=== PATIENT | female | born 1955 | race Caucasian/White ===

== ENCOUNTER 2020-12-09 11:39 | Day surgery (SDCO) | payer OTHER ==
[~2020-12-09 11:39] MED LIST: AMARYL4 MG PO; CERTAGEN1 EACH PO; COMPLETE OMEGA1 EACH PO; EFFEXOR XR37.5 MG PO; JANUVIA100 MG PO; LASIX40 MG PO; LO-DOSE ASPIRIN81 MG PO; METFORMIN HCL500 MG PO; MICRO-K10 MEQ PO; PRAVASTATIN SOD10 MG PO; SINEQUAN10 MG PO; VITAMIN D31000 UNIT PO; VITAMIN E400 UNI1 PO; ZESTRIL5 MG PO
[2020-12-09 12:50] LABS: BASOPHIL 0.4 % (0-2); EOSINOPHIL 0.2 % (0-7); HCT 33.5 % (37.0-47.0); HGB 11.8 g/dl (12.5-16.0); LYMPHOCYTE 10.7 % (15-48); MCH 31.2 pg (25.0-31.0); MCHC 35.2 g/dL (32.0-36.0); MCV 88.6 fL (78.0-100.0); MONOCYTE 3.8 % (0-12); MPV 9.7 fL (6.0-9.5); NEUTROPHIL 84.3 % (41-80); NRBC 0; PLT 323 K/uL (150-400); RBC 3.78 M/uL (4.20-5.40); RDW 14.6 % (11.5-14.0); RETICULOCYTE COUNT 1.9 % (1.0-2.0); WBC 15.9 K/uL (4.0-10.5)
[2020-12-09 13:11] LABS: INR 1.08 (0.9-1.2); IRON % SATURATION 19.6 %SAT (20-50); PROTHROMBIN TIME 13.3 SECONDS (11.4-13.6)
[2020-12-09 13:12] LABS: PTT 30.9 SECONDS (22.2-34.7)
[2020-12-09 13:19] LABS: PRO-BNP 399 pg/mL (<125)
[2020-12-09 13:24] LABS: ALBUMIN 3.3 g/dL (3.4-5.0); BILIRUBIN - TOTAL 0.4 mg/dL (0.2-1.0); BUN/CREAT RATIO (CALC) 23.9 RATIO; CREATININE 0.92 mg/dL (0.51-0.95); GLOBULIN (CALCULATION) 3.8 g/dL; MAGNESIUM 1.5 mg/dL (1.8-2.4); POTASSIUM 4.6 mmol/L (3.5-5.1); TOTAL PROTEIN 7.1 g/dL (6.4-8.2)
[2020-12-09 13:27] LABS: LACTIC ACID 1.7 mmol/L (0.4-1.9)
[2020-12-09 14:11] LABS: BILIRUBIN NEGATIVE (NEGATIVE); BLOOD NEGATIVE Ery/uL (NEGATIVE); CLARITY CLEAR (CLEAR); COLOR YELLOW (YELLOW); GLUCOSE (U) 3+ mg/dL (NORMAL); LEUKOCYTES NEGATIVE Leu/uL (NEGATIVE); NITRITE NEGATIVE (NEGATIVE); PROTEIN NEGATIVE (NEGATIVE); UROBILINOGEN 0.2 mg/dL (0.2-1.0); pH 5.5 (5.0-9.0)
[2020-12-09] MEDS ORDERED: CIPRO500 MG PO (18:33)
[2020-12-09] MEDS ORDERED: NEXIUM20 MG PO (18:33)
[2020-12-10 08:27] LABS: BASOPHIL 0.5 % (0-2); EOSINOPHIL 1.9 % (0-7); HCT 29.1 % (37.0-47.0); HGB 9.8 g/dl (12.5-16.0); LYMPHOCYTE 41.4 % (15-48); MCH 30.4 pg (25.0-31.0); MCHC 33.7 g/dL (32.0-36.0); MCV 90.4 fL (78.0-100.0); MONOCYTE 6.6 % (0-12); MPV 9.4 fL (6.0-9.5); NEUTROPHIL 49.1 % (41-80); NRBC 0; PLT 263 K/uL (150-400); RBC 3.22 M/uL (4.20-5.40); RDW 14.9 % (11.5-14.0); WBC 10.2 K/uL (4.0-10.5)
[2020-12-10 08:50] LABS: BUN/CREAT RATIO (CALC) 16.9 RATIO; CREATININE 0.77 mg/dL (0.51-0.95); MAGNESIUM 1.6 mg/dL (1.8-2.4); POTASSIUM 3.8 mmol/L (3.5-5.1)
--- NOTE | 2020-12-10 11:36 | NUR ---
MET WITH PT AND HER SPOUSE. SHE RESIDES WITH HER SPOUSE. SHE DOES NOT HAVE ANY CHILDEN, BUT DOES HAVE A STEPCHILD. PT. HAS A CANE AND ROLLING WALKER. SHE REQUESTS [facility] FOR NURSING, PT/OT EVAL. PT. SPOUSE SIGNED CHOICE FORM PT. RIGHT ARM IS BROKEN. ADVISED NURSE GOEL OF .
[2020-12-10] MEDS ORDERED: EFFEXOR XR 3737.5 MG PO (11:40)
[2020-12-10] MEDS ORDERED: POTASSIUM CHLO20 ME2 PO (11:42)
[2020-12-10] MEDS ORDERED: JARDIANCE10 MG PO (11:43)
[2020-12-10] MEDS ORDERED: POTASSIUM CHLO10 ME2 PO (11:43)
--- NOTE | 2020-12-10 15:20 | NUR ---
CONTACTED MEDIC PHARMACY FOR HOME MED LIST TO BE FAXED OVER TO UPDATE CURRENT MED LIST
[2020-12-11] MEDS ORDERED: DULCOLAX5 MG PO (08:04)
[2020-12-11] MEDS ORDERED: NORCO 5-325 TA1 EACH PO (08:04)
--- NOTE | 2020-12-11 12:01 | NUR ---
1015 UPDATED EVERARDO THAT MD EM STATES THAT PATIENT DOES NOT NEED TO GO HOME WITH HOME HEALTH AND THAT THE HOME HEALTH ORDER COULD BE CANCELLED
[2020-12-28] MEDS ORDERED: PRINIVIL10 MG PO (09:55)
[2020-12-28] MEDS ORDERED: ZESTRIL5 MG PO (09:56)
[2020-12-28] MEDS ORDERED: KLOR-CON M 1010 MEQ PO (09:56)
[2020-12-28] MEDS ORDERED: LASIX20 MG PO (09:56)
== END 2020-12-11 10:38 | disposition home or self-care (01) ==
LOC: FER 11:39 → FMS 17:06
PROVIDERS: Emergency Medicine; ADMIT Allergy & Immunology Allergy
DX: I95.1 Orthostatic hypotension (principal); E86.0 Dehydration; N17.9 Acute kidney failure, unspecified; S42.201A Unspecified fracture of upper end of right humerus, initial encounter for closed fracture; N39.0 Urinary tract infection, site not specified; E11.9 Type 2 diabetes mellitus without complications; I11.0 Hypertensive heart disease with heart failure; I50.9 Heart failure, unspecified; E78.5 Hyperlipidemia, unspecified; F17.210 Nicotine dependence, cigarettes, uncomplicated; R91.8 Other nonspecific abnormal finding of lung field; K57.30 Diverticulosis of large intestine without perforation or abscess without bleeding; I25.10 Atherosclerotic heart disease of native coronary artery without angina pectoris; K59.00 Constipation, unspecified; Z79.2 Long term (current) use of antibiotics; Z79.84 Long term (current) use of oral hypoglycemic drugs; Z79.899 Other long term (current) drug therapy; Z20.822 Contact with and (suspected) exposure to COVID-19; W18.30XA Fall on same level, unspecified, initial encounter
CPT/HCPCS: 36415; 70450; 71250; 73060; 80048; 80053; 81003; 82533; 82962; 83036; 83540; 83550; 83605; 83690; 83735; 83880; 84145; 84443; 84484; 85025; 85610; 85730; 87040; 97162; 97166; 97530-GP; 97535; G0378; J2060; J7030; J7120; U0002

== ENCOUNTER 2020-12-30 06:01 | Inpatient (IN) | payer OTHER ==
[~2020-12-30] VITALS: Ht 162.6 cm; Wt 66.8 kg
[~2020-12-30 06:01] MED LIST changes: +CIPRO500 MG PO; +DULCOLAX5 MG PO; +EFFEXOR XR 3737.5 MG PO; +JARDIANCE10 MG PO; +KLOR-CON M 1010 MEQ PO; +LASIX20 MG PO; +NEXIUM20 MG PO; +NORCO 5-325 TA1 EACH PO; +POTASSIUM CHLO10 ME2 PO; +POTASSIUM CHLO20 ME2 PO; +PRINIVIL10 MG PO
[2020-12-30] MEDS ORDERED: PERCOCET 5-3251 EACH PO (07:21)
[2020-12-31 06:31] LABS: BASOPHIL 0.5 % (0-2); EOSINOPHIL 1.2 % (0-7); HCT 33.5 % (37.0-47.0); HGB 10.7 g/dl (12.5-16.0); LYMPHOCYTE 25.6 % (15-48); MCH 31.1 pg (25.0-31.0); MCHC 31.9 g/dL (32.0-36.0); MCV 97.4 fL (78.0-100.0); MONOCYTE 5.2 % (0-12); MPV 9.1 fL (6.0-9.5); NEUTROPHIL 67.2 % (41-80); NRBC 0; PLT 331 K/uL (150-400); RBC 3.44 M/uL (4.20-5.40); RDW 18.6 % (11.5-14.0); WBC 9.2 K/uL (4.0-10.5)
[2020-12-31 06:43] LABS: BUN/CREAT RATIO (CALC) 11.6 RATIO; CREATININE 0.69 mg/dL (0.51-0.95); POTASSIUM 4.6 mmol/L (3.5-5.1)
[2020-12-31] MEDS ORDERED: IRON325 M1 PO (08:39)
[2021-01-01 06:26] LABS: BASOPHIL 0.7 % (0-2); EOSINOPHIL 2.5 % (0-7); HCT 26.6 % (37.0-47.0); HGB 8.8 g/dl (12.5-16.0); LYMPHOCYTE 27.3 % (15-48); MCH 31.9 pg (25.0-31.0); MCHC 33.1 g/dL (32.0-36.0); MCV 96.4 fL (78.0-100.0); MONOCYTE 7.6 % (0-12); MPV 9.1 fL (6.0-9.5); NEUTROPHIL 61.5 % (41-80); NRBC 0; PLT 255 K/uL (150-400); RBC 2.76 M/uL (4.20-5.40); RDW 17.8 % (11.5-14.0); WBC 7.5 K/uL (4.0-10.5)
[2021-01-01 06:46] LABS: BUN/CREAT RATIO (CALC) 13.9 RATIO; CREATININE 0.72 mg/dL (0.51-0.95); POTASSIUM 4.1 mmol/L (3.5-5.1)
== END 2021-01-01 12:00 | disposition home or self-care (01) | DRG 483 ==
LOC: FMS 06:01 → FSDC 06:01 → FMS 07:00
PROVIDERS: Nurse Practitioner Adult Health; ADMIT Orthopaedic Surgery
PROC: 0RRJ00Z Replacement of Right Shoulder Joint with Reverse Ball and Socket Synthetic Substitute, Open Approach (ICD-10-PCS; principal; 2020-12-30 07:00)
DX: S42.291A Other displaced fracture of upper end of right humerus, initial encounter for closed fracture (principal); I10 Essential (primary) hypertension; M19.011 Primary osteoarthritis, right shoulder; G89.18 Other acute postprocedural pain; E11.9 Type 2 diabetes mellitus without complications; R60.0 Localized edema; E78.5 Hyperlipidemia, unspecified; F32.9 Major depressive disorder, single episode, unspecified; F41.9 Anxiety disorder, unspecified; I87.2 Venous insufficiency (chronic) (peripheral); D64.9 Anemia, unspecified; Z91.19 Patient's noncompliance with other medical treatment and regimen; W19.XXXA Unspecified fall, initial encounter; Z87.440 Personal history of urinary (tract) infections; Z90.710 Acquired absence of both cervix and uterus; Z98.890 Other specified postprocedural states; Z87.891 Personal history of nicotine dependence; Z79.899 Other long term (current) drug therapy; Z79.84 Long term (current) use of oral hypoglycemic drugs
CPT/HCPCS: 36415; 73020; 80048; 82962; 85025; 86850; 86900; 86901; 93005; 94010; 97162; 97166; 97530-GP; 97535; C1713; C1776; J0171; J0697; J1100; J1200; J1885; J2250; J2270; J2370; J2405; J2704; J2795; J3010; J7120; U0002